=== PATIENT | female | born 1940 | race Caucasian/White ===

== ENCOUNTER 2021-02-05 10:04 | Outpatient (CLI) | payer MEDICARE, OTHER | END 2021-02-05 10:05 | disposition home or self-care (01) | LOC: CSHSPEC 10:04 | PROVIDERS: ATTEND Orthopaedic Surgery | DX: M48.061 Spinal stenosis, lumbar region without neurogenic claudication (principal); Z95.0 Presence of cardiac pacemaker; I77.810 Thoracic aortic ectasia; M47.819 Spondylosis without myelopathy or radiculopathy, site unspecified | CPT/HCPCS: 71045; 72148 ==